=== PATIENT | female | born 1980 | race Caucasian/White ===

== ENCOUNTER 2019-02-15 15:35 | Outpatient (REF) | payer OTHER, SELFPAY ==
--- NOTE | 2019-02-15 14:15 | PAPFT_PTH ---
PATIENT: Jalyn Marks LOC: [facility] U#:[id number] AGE/SX: 38/F ROOM: RE02/15/[address]: DEMETRIUS Raman : 1980 BED: DIS: 02/15/2019 SPEC #: [id number] RECD: 02/15/19 18:30 STATUS: POORNIMA REQ #: [id number] IRMA: 02/15/19 14:[address]: Izabela Rey DEPT: [facility] Cytology RECD BY: Eloina Martin ENTERED: 02/15/19 18:30 SP TYPE: PAPFT OTHR DR: Jyoti Smith Tissues: 1 - CX/ENDOCX FOR PAP SMEARS Procedures: PAP THIN PREP/UVM Screening HPV DNA PROBE Comments: [id number]
[2019-02-16 13:54] LABS: Chlamydia Result Negative (Negative); GC Result Negative (Negative); Specimen Description CERVIX
== END 2019-02-15 15:55 ==
LOC: NCHCN 15:35
PROVIDERS: PCP Nurse Practitioner Family; Visit Provider Nurse Practitioner Family
DX: Z11.3 Encounter for screening for infections with a predominantly sexual mode of transmission (principal); Z12.4 Encounter for screening for malignant neoplasm of cervix; Z11.51 Encounter for screening for human papillomavirus (HPV)
CPT/HCPCS: 87491; 87591; 88142; 87624

== ENCOUNTER 2021-08-06 15:41 | Outpatient (REF) | payer BC, SELFPAY ==
--- NOTE | 2021-08-06 15:20 | PAPFT_PTH ---
PATIENT: Jalyn Marks LOC: N U#:[id number] AGE/SX: 41/F ROOM: RE08/06/[address]: DEMETRIUS Raman : 1980 BED: DIS: 08/06/2021 SPEC #: [id number] RECD: 08/06/21 17:38 STATUS: POORNIMA REQ #: [id number] IRMA: 08/06/21 15:[address]: Izabela Rey DEPT: [facility] Cytology RECD BY: Eloina Martin ENTERED: 08/06/21 17:38 SP TYPE: PAPFT OTHR DR: Jyoti Smith Tissues: 1 - CX/ENDOCX FOR PAP SMEARS Procedures: PAP THIN PREP/UVM Screening HPV DNA PROBE Comments: [id number]
== END 2021-08-06 15:42 | disposition home or self-care (01) ==
LOC: LBN 15:41
PROVIDERS: PCP Nurse Practitioner Family; Visit Provider Nurse Practitioner Family
DX: Z12.4 Encounter for screening for malignant neoplasm of cervix (principal); Z11.51 Encounter for screening for human papillomavirus (HPV)
CPT/HCPCS: 88142; 87624

== ENCOUNTER 2021-09-02 00:28 | Outpatient (CLI) | payer BC, SELFPAY ==
--- NOTE | 2021-09-02 16:00 | DI.MAMMO_ITS ---
Exam(s) MAMMO SCREENING EXAM: MAMMO SCREENING CLINICAL HISTORY: screening. TECHNIQUE: Bilateral full field digital CC and MLO mammographic images were obtained with 3D tomosyn thesis and utilizing computer aided detection (CAD). COMPARISON: 2011 FINDINGS: Masses/Architectural Distortion: None seen. Microcalcifications: No suspicious pleomorphic-type are seen. Skin Thickening/Nipple Retraction: None. IMPRESSION: 1. No significant interval change with no specific features of malignancy noted. 2. Unless there is more urgent need, annual screening mammography is recommended, as per [place] [employer] guidelines. BI-RADS Category 1-negative Breast Density - Category D - extremely dense Breast Density Category D: The mammogram demonstrates the patient's breast tissue is dense. Dense tee ast tissue is very common and is not abnormal but dense breast tissue can make it harder to find canc er on a mammogram. Also, dense breast tissue may increase their breast cancer risk. This information about the result of the mammogram report was provided to the patient to raise their awareness. Use th is report when you speak with the patient about their risks for breast cancer, which includes their f amily history. At that time, you may recommend for more screening tests (Ultrasound or MRI) as they m ight be useful based on their risk. A negative radiographic report should not delay biopsy if a dominant or clinically suspicious mass is present. Up to ten percent of cancers are not identified on mammography. A negative report may reinforce clinical impression. Adenosis and dense breasts may obscure an underlying neoplasm. False positive reports average 6 to 10%.
== END 2021-09-02 00:48 ==
PROVIDERS: PCP Nurse Practitioner Family; Visit Provider Nurse Practitioner Family
DX: Z12.31 Encounter for screening mammogram for malignant neoplasm of breast (principal)
CPT/HCPCS: 77063; 77067

== ENCOUNTER 2023-04-29 02:55 | Emergency (ER) | payer BC, SELFPAY ==
[2023-04-29 03:17] VITALS: BP 140/89; PULSE 91; RESP 18; TEMP 36.9; O2SAT 99
--- NOTE | 2023-04-29 03:22 | W.ED.GENAD ---
HPI General Stated Complaint: Headache EVELINA: 3 Date/Time Provider Initiated Documentation: 04/29/23 03:04. Limitations to Documentation: no limitations. Information obtained by: patient. History of Present Illness migraine severe 9 aching head reports no radiation day(s) (7) intermittent No relieving factors improve symptom(s), Other factors that worsen symptoms (light) denies chest pain, fever/chills and shortness of breath Related Data Home Medications Medication Instructions Recorded Confirmed levonorgestrel 21 mcg/24 hours (8 1 device intrauterine ONCE 03/26/19 04/29/23 yrs) 52 mg intrauterine device (Mirena) cholecalciferol (vitamin D3) 125 125 mcg PO DAILY 08/06/21 04/29/23 mcg (5,000 unit) capsule magnesium L-threonate 48 mg 500 mg PO DAILY 07/08/22 04/29/23 magnesium (667 mg) capsule (MagMind) propranolol 120 mg capsule,24 120 mg PO QHS #90 caps 07/08/22 04/29/23 hr,extended release rizatriptan 10 mg tablet (Maxalt) 10 mg PO ONCE PRN headache #10 tabs 07/08/22 04/29/23 thiamine HCl (vitamin B1) 100 mg 100 mg PO DAILY 07/08/22 04/29/23 tablet prednisone 50 mg tablet 50 mg PO DAILY 5 days #5 tabs 04/27/23 04/29/23 Previous Rx's Medication Instructions Recorded propranolol 120 mg capsule,24 120 mg PO QHS #90 caps 07/08/22 hr,extended release rizatriptan 10 mg tablet (Maxalt) 10 mg PO ONCE PRN headache #10 tabs 07/08/22 prednisone 50 mg tablet 50 mg PO DAILY 5 days #5 tabs 04/27/23 Allergies Allergy/AdvReac Type Severity Reaction Status Date / Time topiramate [From Topamax] Allergy Intermediate arms and Verified 04/29/23 03:16 legs go Review of Systems All systems reviewed & are unremarkable except as noted in HPI and below Constitutional Constitutional: Denies chills, Denies fever(s) and Denies weakness Cardiovascular Cardiovascular: Denies chest pain and Denies dyspnea Respiratory Respiratory: Denies cough and Denies dyspnea Gastrointestinal Gastrointestinal: Denies abdominal pain and Reports nausea Musculoskeletal Musculoskeletal: Denies joint swelling Neurologic Neurologic: Denies weakness PFSH All Active Problems (Updated 04/29/23 @ 04:39 by Navin Sutherland MD) Hand numbness (Acute) IUD surveillance (Acute) Migraine headache without aura (Acute) Migraine (Acute 07/18/15) Family History Mother Diabetes Maternal Grandmother Ovarian cancer Social History Smoking/Tobacco Use Status: Never Tobacco: How many years used: 5 Smoking risk assessment performed?: Yes Alcohol Intake: never Drug use: Never Household members: spouse and children Housing: house Current gender identity: female Do you feel safe at home: Yes Do you feel safe in your relationship?: Yes Female Reproductive History Menstrual control method: progestin IUCD Exam Const Orientation: alert HENMT Head: normal to inspection Ears: external ears normal General nose exam: external nose normal Mouth: moist mucous membranes Eyes General: appearance normal, both eyes and all related structures Alignment and Position: alignment normal Eyelids: eyelids normal Conjunctivae: conjunctivae normal Cornea: corneas normal Pupils: PERRL Neck Neck: normal visual inspection, full ROM and no meningeal signs Resp Effort & Inspection: normal respiratory effort and able to speak in complete sentences Cardio Rate: regular rate Skin General skin exam: no rashes or lesions noted Neuro General: patient alert and patient oriented x3 Extrem General: normal to inspection Psych Mental Status: mental status grossly normal Course Vital Signs Vital signs: Vital Signs Temperature 36.9 C 04/29/23 03:17 Pulse 91 H 04/29/23 03:17 Respiratory Rate 18 04/29/23 03:17 Blood Pressure 140/89 04/29/23 03:17 Pulse Oximetry 99 04/29/23 03:17 Temperature 36.9 C 04/29/23 03:17 Temperature Source Temporal Artery Scan 04/29/23 03:17 Pulse 91 H 04/29/23 03:17 Respiratory Rate 18 04/29/23 03:17 Blood Pressure 140/89 04/29/23 03:17 Blood Pressure Position Supine 04/29/23 03:17 Pulse Oximetry 99 04/29/23 03:17 Oxygen Delivery Method Room Air 04/29/23 03:17 Oxygen Flow Rate 0 04/29/23 03:17 Pain Level 10 04/29/23 03:17 Medical Decision Making 43 yo female with hx of migraines comes in with 7 days of intermittent migraines similar to the past and tonight wasn't able to sleep due to the pain so came here. denies pain starting severely, usually slowly worsens per patient. No fevers/chills or neck stiffness. She localizes it to the right frontal part of her head and states it wraps to the back of her head similar to her usual migraines. She is caox4 on arrival, speaking clearly, cn II-XII intact, no focal deficits, full rom of her neck. Suspect migraine and will treat with compazine, benadryl, decadron and toradol and reassess. Pain not thunderclap so doubt subarachnoid and no infectious symptoms to suggest cork compounder infection pt feeling significantly improved and requests d/c, still no neck stiffness and stable neuro exam. She did start prednisone yesterday after talking with her neurologist, advised to hold dose today since she got decadron unless her neurologist advises her otherwise. She will f/u with pcp/neurology and return precautions given Differential Diagnosis Differential Diagnosis: migraine, tension headache Quality:SDOH Health Related Social Needs: No Data to Display Discharge Plan Disposition Patient Disposition: Home Condition: Stable Discharge Details Clinical Impression: Migraine Primary Care Provider: Maura Bose ED Provider: Navin Sutherland Home Meds and New Rx's Prescriptions: Continued MagMind 48 mg magnesium (667 mg) capsule 500 mg PO DAILY Rx Instructions: 500mg tab in the morning. thiamine HCl (vitamin B1) 100 mg tablet 100 mg PO DAILY propranolol 120 mg capsule,extended release 24 hr 120 mg PO QHS Qty: 90 3RF rizatriptan [Maxalt] 10 mg tablet 10 mg PO ONCE PRN (Reason: headache) Qty: 10 12RF Rx Instructions: Take one tablet as needed for headaches. May repeat after 2 hours if needed. No more than 2 doses in a 24 hour period. cholecalciferol (vitamin D3) 125 mcg (5,000 unit) capsule 125 mcg PO DAILY Mirena 20 mcg/24 hours (5 yrs) 52 mg intrauterine device 1 device IY ONCE Patient Comments: Placed by Izabela Rey. Lot [id number] Exp Apr 2021 Held prednisone 50 mg tablet 50 mg PO DAILY 5 Days Qty: 5 0RF Hold Instructions: Resume on 05/02/23. discuss with your neurologist if and when you should resume this Discharge Instructions Instructions: Migraine Headache (ED) Additional Instructions: follow up with your neurologist and primary care provider one of the IV medications you were given is dexamethasone, I would recommend holding your prednisone unless your neurologist advises otherwise if you feel more ill, have severe worsening pain or new symptoms such as fevers return to the emergency department
[2023-04-29] MEDS: Dexamethasone 10 MG/ML VIAL IVP (03:50)
[2023-04-29] MEDS: Ketorolac 15 MG/ML VIAL IVP (03:50)
[2023-04-29] MEDS: Normal Saline 1,000 ML 1000 ML IV (03:50)
[2023-04-29] MEDS: diphenhydrAMINE 50 MG/ML VIAL 12.5 MG IVP (03:50)
[2023-04-29] MEDS: Prochlorperazine 10 MG/2 ML VIAL IVP (03:51)
[2023-04-29 04:50] VITALS: BP 96/46; PULSE 75; RESP 16; O2SAT 99
== END 2023-04-29 04:52 | disposition home or self-care (01) ==
PROVIDERS: Emergency Provider Emergency Medicine; PCP Nurse Practitioner Family
DX: G43.909 Migraine, unspecified, not intractable, without status migrainosus (principal); R11.0 Nausea; R11.10 Vomiting, unspecified
CPT/HCPCS: 96361; 96374; 96375; 99284; 99283; J0780; J1100; J1200; J1885

== ENCOUNTER → 2023-09-08 13:25 | Outpatient (CLI) | payer BC, SELFPAY ==
--- NOTE | 2023-09-08 13:05 | DI.RAD_ITS ---
Exam(s) XR TIB/FIB LT EXAM: XR TIB/FIB LT CLINICAL HISTORY: M25.373 other instability, lt ankle joint instability, evaluate pathology. TECHNIQUE: 2D digital imaging was performed. COMPARISON: No exams were available for comparison FINDINGS: Two views-AP and lateral No evidence of obvious fracture. Tibial plateau appears intact. There is a slight cortical irregula rity on the lateral aspect of the fibular head-neck junction noted. Correlation with site of tenderness is recommended IMPRESSION: Slight cortical irregularity lateral aspect of the fibular head-neck. Correlation with site of tende rness is recommended. DATA REPOSITORY: RADIATION DOSE DELIVERED:
--- NOTE | 2023-09-08 13:05 | DI.RAD_ITS ---
Exam(s) XR ANKLE LT COMPLETE EXAM: XR ANKLE LT COMPLETE CLINICAL HISTORY: M25.373 other instability, lt ankle joint instability, evaluate pathology. TECHNIQUE: 2D digital imaging was performed. COMPARISON: No exams were available for comparison FINDINGS: Four views. No evidence of fracture or widening of the ankle mortise weight-bearing views. Talar dome unremarkab le. Osseous tarsal coalition. Bone density normal. No osseous lesions. Incidentally noted is a la rge accessory ossicle lateral to the cuboid bone. IMPRESSION: No fracture or widening of the ankle mortise evident. DATA REPOSITORY: RADIATION DOSE DELIVERED:
== END ==
PROVIDERS: PCP Nurse Practitioner Family; Visit Provider Nurse Practitioner Family
DX: M25.372 Other instability, left ankle (principal); M79.662 Pain in left lower leg
CPT/HCPCS: 73590; 73610